=== PATIENT | male | born 1955 | race Caucasian/White ===

== ENCOUNTER 2021-06-09 18:20 | Emergency (ER) | payer MEDICARE, BC ==
[~2021-06-09] VITALS: Ht 180.3 cm; Wt 89.6 kg
--- NOTE | 2021-06-09 18:30 | NUR ---
PATIENT WHEELED BACK FROM TRIAGE WITH CHIEF C/O POSSIBLE BLOOD CLOT IN RIGHT LEG. PER PATIENT HE HAD DVT IN LEFT LEG AND BLOOD CLOTS IN LUNGS 05/28/2021, PATIENT CURRENTLY TAKING ELIQUIS 5 MG BID. PATIENT FLEW IN TO [place] SATURDAY AND C/O FEVER, CORTEZ, JOINT PAIN AND FELT "LIKE I WAS IN A CLOUD." RIGHT LEG IS TENDER, WARM TO THE TOUCH, SWOLLEN AND RED. PER PATIENT REDNESS IS MOVING UP LEG. CONNECTED TO MONITOR, VSS, AT BEDSIDE, CALL LIGHT WITHIN REACH.
--- NOTE | 2021-06-09 18:50 | NUR ---
REPORT TO KAMILLE MCNAMARA FOR TRANSFER OF PATIENT CARE.
[2021-06-09 19:32] LABS: BASOPHILS % (AUTO) 0 % (0-1); EOSINOPHILS % (AUTO) 0 % (1-7); LYMPHOCYTES % (AUTO) 20 % (22-44); MEAN CORPUSCULAR HEMOGLOBIN 30.5 pg (27.5-34.5); MEAN CORPUSCULAR HGB CONC 34.5 g/dL (33.2-36.2); MEAN PLATELET VOLUME 8.3 fL (7.4-10.4); MONOCYTES % (AUTO) 6 % (2-9); NEUTROPHILS % (AUTO) 74 % (42-75); PLATELET COUNT 209 x10^3/uL (130-400); RED BLOOD COUNT 4.53 x10^6/uL (4.38-5.82); RED CELL DISTRIBUTION WIDTH 13.4 % (9.4-14.8)
[2021-06-09] MEDS ORDERED: ACETAMINOPHEN 500 MG TABLET ONE (19:33)
[2021-06-09 19:44] LABS: ALBUMIN 3.4 g/dL (3.4-5.0); ANION GAP 7 mmol/L (5-15); CALCIUM 8.7 mg/dL (8.5-10.1); CHLORIDE 99 mmol/L (98-107); CREATININE 1.03 mg/dL (0.7-1.3)
[2021-06-09] MEDS ORDERED: ACETAMINOPHEN 500 MG TABLET PO ONE (20:00)
--- NOTE | 2021-06-09 20:00 | NUR ---
PT TO US NOW. CT HERE AND ADVISED PT GONE. CT WILL RETURN ONCE US IS DONE.
[2021-06-09] MEDS ORDERED: CEPHALEXIN 500 MG CAPSULE ONE (21:43)
[2021-06-09 21:46] VITALS: BP 121/76
[2021-06-09] MEDS ORDERED: CEPHALEXIN 500 MG CAPSULE PO ONE (22:00)
--- NOTE | 2021-06-09 22:18 | NUR ---
Patient given discharge instructions and they have confirmed that they understand the instructions. Patient ambulatory with steady gait.
== END 2021-06-09 22:20 | disposition home or self-care (01) ==
LOC: ED 20:00
DX: L03.115 Cellulitis of right lower limb (principal); R51.9 Headache, unspecified; R94.31 Abnormal electrocardiogram [ECG] [EKG]; Z86.718 Personal history of other venous thrombosis and embolism
CPT/HCPCS: 36415; 70450; 71045; 80048; 82040; 85025; 93005; 99285